=== PATIENT | female | born 1965 | race Caucasian/White ===

== ENCOUNTER 2017-09-25 14:29 | Observation (INO) | payer OTHER ==
[~2017-09-25] VITALS: Ht 160 cm; Wt 66.5 kg
[2017-09-25] MEDS ORDERED: FOLI1TAB8 PO (18:23)
[2017-09-25] MEDS ORDERED: LEFL10TA PO (18:23)
[2017-09-25] MEDS ORDERED: METH2.5T PO (18:23)
[2017-09-25] MEDS ORDERED: HYDR200T5 PO (18:23)
[2017-09-25] MEDS ORDERED: PRED-301 PO (18:23)
--- NOTE | 2017-09-25 18:43 | EMERGENCY ROOM VISIT NOTE ---
History First contact with patient: 18:31 (Malachi Coffman M.D.) First contact with patient: 17:52 (Matthieu Johnson M.D.) Chief Complaint: CARDIAC ASSESSMENT Stated Complaint: RAPID HEARTBEAT, SICK IN STOMACH, TINGLING Nursing Triage Summary: Pt referred by acute care, no testing done. pt c/o left sided chest pain into shoulder blade. tingling in arms and back. denies SOB. (Malachi Coffman M.D.) History of Present Illness 52F with a PMHx of RA on methotrexate and Prednisone (managed by Dr. Hughes?) presents to the Emergency Room with complaints of chest tingling and pressure x 6 hours. Pt was playing candy [employer] on her phone when the tingling started. The tingling has never gone away, or waned. The tingling and pressure is not made worse by movement or exertion. While in the triage area the patient reports that she felt that her heart was racing in 4 separate episodes, this has not occurred before. Denies fevers, denies any chest pain, denies SOB, denies fevers, denies night sweats, no diarrhea, no dysuria, never had kidney stones, + cough. Pt denies any skin changes recently, she reports she did have chicken pox when she was younger. No family history of thyroid issues. SHx: Unemployed, daughter smokes in the home, pt quit smoking 13 years ago. (Malachi Coffman M.D.) Review of Systems See HPI for pertinent positives and negatives. A total of ten systems were reviewed and were otherwise negative. (Malachi Coffman M.D.) Past Medical/Surgical History Medical Problems: (1) Chest tightness (Matthieu Johnson M.D.) Family History No significant family history (Matthieu Johnson M.D.) Social History Smoking Status: Former Smoker (Malachi Coffman M.D.) Current/Historical Medications Scheduled Folic Acid (Folvite), 1 MG PO DAILY Hydroxychloroquine Sulfate (Plaquenil), 200 MG PO HS Leflunomide (Arava), 10 MG PO DAILY Methotrexate (Methotrexate), 20 MG PO WK Prednisone (Prednisone), 5 MG PO DAILY Physical Exam Vital Signs Date Time Temp Pulse Resp B/P (MAP) Pulse Ox O2 Delivery O2 Flow Rate FiO2 09/25/17 20:30 100 152/70 96 Room Air 09/25/17 18:05 84 09/25/17 17:54 100 16 151/68 100 Room Air 09/25/17 14:42 99 Room Air 09/25/17 14:39 36.6 102 18 122/78 99 Room Air (Matthieu Johnson M.D.) Physical Exam Gen: No acute distress. HEENT: Head - normocephalic and atraumatic. Pupils are equal, round, and reactive to light. Extraocular eye muscles are intact and sclera are anicteric. Ears - bilaterally patent canals with noninjected tympanic membranes and no evidence of hemotympanum. Nose - moist nasal mucosa without discharge. Mouth - moist buccal mucosa. Oropharynx is nonerythematous and there is no tonsillar exudate or edema noted. Neck: Supple; no JVD, nuchal rigidity, cervical lymphadenopathy, or auscultated bruits. Heart: Regular rate and rhythm. There is a normal S1 and S2 with no murmurs, clicks, or gallops appreciated. Lungs: Clear to auscultation bilaterally with no wheezes, rales, or rhonchi. Abdomen: Soft, completely nontender, nondistended, with good bowel sounds. There are no palpable pulsatile masses or hepatosplenomegaly. There is no guarding, rigidity, or rebound noted. Extremities: No evidence of cyanosis, clubbing, or edema. There are easily palpable peripheral pulses. Back: Pt's scapular and surrounding musculature on the left side is tender to palpation, she has moderate tenderness on passive range of motion of the left shoulder, none of the MSK movements of the upper left arm reproduce or alleviate her tingling. SKIN: Skin over the anterior upper chest arm, left arm and back are within normal limits for age. No signs of rash or excoriation. Neuro:The patient is awake and alert, oriented to day, time, and place. Muscle strength is 5/5 in all 4 extremities. The patient has equal junior assistant manager strength and equal pedal push and pull. There are no cerebellar signs. (Malachi Coffman M.D.) Medical Decision & Procedures ER Provider Diagnostic Interpretation: SINGLE VIEW CHEST CLINICAL HISTORY: Atypical chest pain. FINDINGS: An AP, portable, upright chest radiograph is obtained. No prior studies are available for comparison at the time of dictation. The examination is mildly degraded by portable technique and patient rotation. The cardiomediastinal silhouette is unremarkable. The lungs and pleural spaces are clear. No pneumothorax is seen. The bony thorax is grossly intact. Productive degenerative change is seen at the acromioclavicular joints. IMPRESSION: No active disease in the chest. (Malachi Coffman M.D.) Laboratory Results 09/25/17 19:14 09/25/17 21:26 09/25/17 19:14 Test 09/25/17 19:14 09/25/17 20:59 09/25/17 21:26 Red Blood Count 2.69 M/uL (4.2-5.4) Mean Corpuscular Volume 85.5 fL (80-100) Mean Corpuscular Hemoglobin 27.5 pg (25-34) Mean Corpuscular Hemoglobin Concent 32.2 g/dl (32-36) RDW Standard Deviation 63.7 fL (36.4-46.3) RDW Coefficient of Variation 20.7 % (11.5-14.5) Mean Platelet Volume 8.7 fL (7.4-10.4) Anion Gap 8.0 mmol/L (3-11) Est Creatinine Clear Calc Drug Dose 100.5 ml/min Estimated GFR () 121.5 Estimated GFR (Non- 104.8 BUN/Creatinine Ratio 15.4 (10-20) Lactic Acid Level 0.7 mmol/L (0.4-2.0) Calcium Level 8.6 mg/dl (8.5-10.1) Total Bilirubin 0.2 mg/dl (0.2-1) Aspartate Amino Transf (AST/SGOT) 20 U/L (15-37) Alanine Aminotransferase (ALT/SGPT) 24 U/L (12-78) Alkaline Phosphatase 44 U/L (45-117) Total Protein 6.9 gm/dl (6.4-8.2) Albumin 3.4 gm/dl (3.4-5.0) Globulin 3.5 gm/dl (2.5-4.0) Albumin/Globulin Ratio 1.0 (0.9-2) Lipase 152 U/L (73-393) Thyroid Stimulating Hormone (TSH) 1.230 uIu/ml (0.300-4.500) Free Thyroxine 1.00 ng/dl (0.80-1.60) Bedside Troponin I < 0.030 ng/ml (0-0.045) Activated Partial Thromboplast Time 25.3 SECONDS (21.0-31.0) Partial Thromboplastin Ratio 1.0 D-Dimer 300 ug/L FEU (0-500) Magnesium Level 2.1 mg/dl (1.8-2.4) (Matthieu Johnson M.D.) Medications Administered Medications (Trade) Dose Ordered Sig/Tatyana Route Start Time Stop Time Status Last Admin Dose Admin Ondansetron HCl (Zofran Odt) 4 mg NOW STAT PO 09/25/17 20:17 09/25/17 20:23 DC 09/25/17 20:34 4 MG (Matthieu Johnson M.D.) ECG Rhythm: sinus tachycardia Findings: no ectopy, other (normal axis, no ST changes. ) (Malachi Coffman M.D.) Indication: chest pain Rate (beats per minute): 104 Rhythm: sinus tachycardia Findings: other (normal intervals, normal axis, no STS changes or TWI as interpreted by me) Comparison ECG Date: no prior available (Matthieu Johnson M.D.) Medical Decision The patient's care and disposition was discussed with Dr. Johnson, Attending ED Physician. This is a 52F with Chest Tingling and Pressure. Differential diagnosis includes but is not limited to acute coronary syndrome, myocardial infarction, pericarditis, pulmonary embolus, aortic dissection, pneumonia, pneumothorax, musculoskeletal, shingles, anemia, esophageal, atrial fibrillation, thyrotoxicosis, herpes zoster and anxiety. Triage Nursing notes were reviewed. ED Course included an extensive history and physical exam, labs, Xray and EKG. CBC showed a hemoglobin of 7.4. EKG showed sinus tachycardia. CMP, Lipase, TSH and Troponin were WNL. 6:30pm - Pt was seen and examined at bedside and initial orders were placed. 7:30pm - Anemia results were discussed with patient at which point she added further history regarding having upper and lower endoscopies for anemia in April 2017 and being chronically anemic. 8:00pm - [facility] records were obtained and the case was discussed with Dr. Johnson. Patient has had a 3 point blood loss since last CBC in August 2017. 8:15pm - Findings were discussed with patient, she preferred to have a BM instead of a rectal exam. 8:20pm - Diet order was placed with Anibal, patient wants to take two of her home medications. 8:30pm - Pt could not produce a BM, digital rectal exam was performed and was negative. 8:40pm - Pt complained of continued tingling but denied any palpitations. She will undergo a walk test with the nurse. 8:50pm - Pt continues to have chest tingling and pressure. It was recommended that the patient be brought in for evaluation of her symptomatic anemia. Patient and daughter we present at bedside and verbalized understanding. 9pm - Spoke with Dr. Palomares about admission regarding symptomatic anemia. The pt was informed about the findings as listed above. All questions were answered. (Malachi Coffman M.D.) Medication Reconcilliation Current Medication List: was personally reviewed by me (Matthieu Johnson M.D.) Blood Pressure Screening Patient's blood pressure: Elevated blood pressure Blood pressure disposition: Referred to PCP (Matthieu Johnson M.D.) Impression Primary Impression: Anemia Additional Impression: Chest tightness Departure Information Dispostion Admitted as an inpatient Condition FAIR Referrals No Doctor, Assigned (PCP) Patient Instructions My [facility] Resident Involvement: Resident Care Provided Care Provided: Adult ED (Malachi Coffman M.D.) Problem Qualifiers Primary Impression: Anemia Anemia type: unspecified type Qualified Codes: D64.9 - Anemia, unspecified
--- NOTE | 2017-09-25 18:50 | DIAGNOSTIC IMAGING REPORT ---
SINGLE VIEW CHEST CLINICAL HISTORY: Atypical chest pain. FINDINGS: An AP, portable, upright chest radiograph is obtained. No prior studies are available for comparison at the time of dictation. The examination is mildly degraded by portable technique and patient rotation. The cardiomediastinal silhouette is unremarkable. The lungs and pleural spaces are clear. No pneumothorax is seen. The bony thorax is grossly intact. Productive degenerative change is seen at the acromioclavicular joints. IMPRESSION: No active disease in the chest. Electronically signed by: Nayan Enrique M.D. 09/25/2017 6:49 PM Dictated Date/Time: 09/25/2017 6:48 PM
[2017-09-25 19:26] LABS: HEMOGLOBIN 7.4 g/dL (12.0-16.0); MEAN CELL VOLUME 85.5 fL (80-100); MEAN CORPUSCULAR HEMOGLOBIN 27.5 pg (25-34); MEAN CORPUSCULAR HGB CONC 32.2 g/dl (32-36); MEAN PLATELET VOLUME 8.7 fL (7.4-10.4); PLATELET COUNT 416 K/uL (130-400); RED CELL DISTRIBUTION WIDTH CV 20.7 % (11.5-14.5); RED CELL DISTRIBUTION WIDTH SD 63.7 fL (36.4-46.3)
[2017-09-25 19:47] LABS: ALBUMIN 3.4 gm/dl (3.4-5.0); CALCIUM 8.6 mg/dl (8.5-10.1); CREATININE 0.6 mg/dl (0.60-1.20); POTASSIUM 3.7 mmol/L (3.5-5.1)
[2017-09-25 19:58] LABS: TOTAL PROTEIN 6.9 gm/dl (6.4-8.2)
[2017-09-25] MEDS ORDERED: ONDANSETRON 4MG OD TAB PO STA (20:17)
--- NOTE | 2017-09-25 20:19 | EMERGENCY ROOM VISIT NOTE ---
ED Visit Note First contact with patient: 17:52 The patient was seen and examined with the resident, Dr. Coffman . I agree with the history, physical and findings. Please see the note for disposition and details.
[2017-09-25 21:39] LABS: HEMATOCRIT 23.1 % (37-47); HEMOGLOBIN 7.4 g/dL (12.0-16.0)
[2017-09-25 21:42] LABS: PTT PATIENT 25.3 SECONDS (21.0-31.0)
[2017-09-25] MEDS ORDERED: ALUMINUM/MAGNESIUM SUSP 30 ML UDC ONE (23:11)
[2017-09-25] MEDS ORDERED: LIDOCAINE HCL 2% VISC SOLN 20 ML UDC ONE (23:11)
[2017-09-25] MEDS ORDERED: GI COCKTAIL PO ONE (23:15)
[2017-09-25] MEDS ORDERED: MoRPHine SULFATE 4 MG/ML 1 ML CARP\\VIAL IV PRN (23:30)
[2017-09-25] MEDS ORDERED: IV FLUIDS COMPLETED PRN (23:30)
[2017-09-25] MEDS ORDERED: ACETAMINOPHEN 325 MG TAB PO PRN (23:30)
[2017-09-25] MEDS ORDERED: NITROGLYCERIN 0.4 MG SL PER TAB CHARGE SL PRN (23:30)
[2017-09-25] MEDS ORDERED: TRAMADOL HCL 50 MG TAB PO PRN (23:30)
[2017-09-25] MEDS ORDERED: PROCHLORPERAZINE INJ 5 MG in SYRINGE 4 ML IV PRN (23:30)
[2017-09-25] MEDS ORDERED: LORAZEPAM 2 MG/ML 1 ML VIAL IV PRN (23:30)
[2017-09-25] MEDS ORDERED: PANTOprazole SOD 40 MG TAB PO STA (23:51)
[2017-09-26] MEDS ORDERED: NSS + 20MEQ KCL 1000ML 1,000 ML IV SCH (03:00)
[2017-09-26 04:23] LABS: BASO % 0.6 %; BASO ABS # 0.07 K/uL (0-0.2); EOS % 0.9 %; EOS ABS # 0.11 K/uL (0-0.5); HEMATOCRIT 23.1 % (37-47); HEMOGLOBIN 7.3 g/dL (12.0-16.0); IG# 0.02 K/uL (0.00-0.02); LYMPH ABS # 2.38 K/uL (1.2-3.4); MEAN CELL VOLUME 85.2 fL (80-100); MEAN CORPUSCULAR HEMOGLOBIN 26.9 pg (25-34); MEAN CORPUSCULAR HGB CONC 31.6 g/dl (32-36); MEAN PLATELET VOLUME 8.7 fL (7.4-10.4); MONO ABS # 0.36 K/uL (0.11-0.59); NEUT % 75.3 %; NEUT ABS # 8.96 K/uL (1.4-6.5); PLATELET COUNT 396 K/uL (130-400); RED CELL DISTRIBUTION WIDTH CV 20.7 % (11.5-14.5); RED CELL DISTRIBUTION WIDTH SD 64.4 fL (36.4-46.3); RETIC COUNT % 2.3 % (0.5-2.0)
[2017-09-26 04:45] LABS: TRANSFERRIN 237 mg/dl (200-360)
[2017-09-26 05:11] VITALS: BP 119/54; PULSE 72; TEMP 36.6; Ht 160 cm; Wt 66.5 kg
[2017-09-26 05:15] VITALS: BP 93/60; PULSE 68; TEMP 36.4; O2SAT 99
--- NOTE | 2017-09-26 05:26 | HISTORY & PHYSICAL EXAMINATION ---
DATE OF ADMISSION: 09/25/2017 PRIMARY CARE DOCTOR: Dr. Womack (Patient would like to follow-up with Miss Balbina Kimball PA-C at [facility] upon discharge from the hospital. ) Chief complaint : Chest tightness HISTORY OF PRESENT ILLNESS: Medical history significant for rheumatoid arthritis on chronic immunosuppression, depression, chronic anemia baseline hemoglobin 11, colonic polyposis, hemorrhoids, diverticulosis, past tobacco abuse. T Patient was watching television yesterday, playing with her phone when she noted substernal tightness going to her left shoulder. No shortness of breath, nonpleuritic. Some worsening with motion Burning like. Relief with GI cocktail given in the ER. Denies abdominal pain/black/bloody stools. stool FOBT at the ER was negative. MEDICAL HISTORY: As above. Has not been feeling well on RA meds particularly methotrexate for about a year. Patient contemplating on talking to her computer technology instructor next week about possibly stopping medication. Worsening anemia last year, hemoglobin of 7.4 at the lowest. Iron deficiency anemia on outpatient workup. EGD Normal. Colonoscopy from 2017 showed polyps, diverticulosis and internal hemorrhoids. HOME MEDICATIONS: Methotrexate, Arava, prednisone, ferrous sulfate, hydroxychloroquine, ibuprofen. ALLERGIES: No known drug allergies. FAMILY HISTORY: Rheumatoid arthritis, diabetes. PERSONAL AND SOCIAL HISTORY: Past tobacco abuse. No chronic intake of alcoholic beverages. Homemaker. REVIEW OF SYSTEMS: As per HPI. All 10 systems reviewed. All Other ROS negative. PHYSICAL EXAMINATION: VITAL SIGNS: Blood pressure 127/78, pulse rate 100, RR 18, temperature 36.6, sats 98 on room. GENERAL: Noted to comfortable, pleasant, no respiratory distress. SKIN: Pallor . Warm. HEENT: Pale palpebral conjunctivae. No ptosis. Dry mucosa. NECK: Supple. No tenderness. CHEST: Clear to auscultation. No tenderness. HEART: Regular rate and rhythm, no murmur. ABDOMEN: Soft, nontender. EXTREMITIES: No edema. Left posterior shoulder tenderness. no gross deformities. NEUROLOGIC: Coherent. No gross focality. LABORATORY DATA: Hemoglobin was noted to be 7.4, hematocrit 20, white cell count 12.7, platelets noted to be 416. Sodium 139, potassium 3.7, chloride 106, CO2 of 25, BUN 9, creatinine 0.6, glucose noted to be 89. D-dimer was normal. Chest x-ray showed no active disease. EKG as per my interpretation, rate 105, sinus tachycardia, no ischemia. ASSESSMENT: 1. Atypical chest pain likely secondary to GERD. Burning quality, relief with GI cocktail given at the ER. Patient predisposed by multiple home meds for rheumatoid arthritis (NSAIDS, Prednisone, Methotrexate.) ro ACS w/ left posterior shoulder radiation (left posterior shoulder with reproducible tenderness) 2. Acute on chronic anemia Patient asymptomatic - she denies chest pain, shortness of breath symptoms. Iron deficiency anemia on partial outpatient anemia workup last year. Negative FOBT at the ER. Patient completed GI workup last year. ? Hematologic toxicity from Methotrexate, Plaquenil 3. Past tobacco abuse. PLAN: Observation PCU. Initiate PPI Stress test in a.m. if morning troponin normal Hold Methotrexate for now until further discussion with [facility] Rheumatology (Dr. Burns) Complete anemia workup. May need Hematology opinion. Iron supplementation. DVT prophylaxis. DVT prophylaxis, Lovenox subQ. Full code. ADDENDUM : Case discussed with Dr. Burns. Okay to hold home MTRX until patient sees him in his office next week. MTDD
[2017-09-26 07:31] VITALS: BP 96/59; PULSE 71; TEMP 36.9; O2SAT 98
[2017-09-26 08:00] VITALS: O2SAT 98
[2017-09-26] MEDS: FERROUS SULFATE 325 MG TAB PO SCH ×2 (08:01→12:14)
[2017-09-26] MEDS ORDERED: LEFLUNOMIDE 10 MG TAB PO SCH (09:00)
[2017-09-26] MEDS ORDERED: ENOXAPARIN 40 MG/0.4 ML SYR SC SCH (09:00)
[2017-09-26 12:00] VITALS: O2SAT 98
[2017-09-26 12:32] LABS: HEMATOCRIT 25.2 % (37-47); HEMOGLOBIN 7.9 g/dL (12.0-16.0)
--- NOTE | 2017-09-26 13:36 | EXERCISE STRESS ECHO ---
*NOTICE TO RECEIVING REPUBLICAN AGENCY This information is strictly Confidential and protected under [place] law. [place] law prohibits you from making any further disclosure of this information unless further disclosure is expressly permitted by the written consent of the person to whom it pertains or is authorized by law. A general authorization for the release of medical or other information is not sufficient for this purpose. Hospital accepts no responsibility if the information is made available to any other person, INCLUDING THE PATIENT. Interpretation Summary * Name: SUKUMAR AKHTAR Study Date: 09/26/2017 10:08 AM BP: 117/65 mmHg * Patient Location: [facility]\S\N286\S\2 HR: 71 * : 1965 (M/d/yyyy) Gender: Female Height: 63 in * Age: 52 yrs Ethnicity: CA Weight: 146 lb * Ordering Physician: Luis Fernando Jacques * Referring Physician: Self, Referred * Performed By: Virgen Morales RDCS * * Reason For Study: CHEST PAIN * BSA: 1.7 m2 * -- Conclusions -- * Nonischemic exercise stress echocardiogram. * No arrhythmias. * Normal HR and BP response to exercise. * Below average exercise tolerance. * Chest pain was not reproduced with exercise. * At rest, normal LV chamber size and wall thickness. * Normal LV systolic function, EF 60-65%. * No segmental left ventricular wall motion abnormalities are noted. * Normal diastolic function. * No significant valvular pathology. Procedure Details * ECHOEX, CPT #[id number] Left Ventricle * The left ventricle is normal in size. * There is normal left ventricular wall thickness. * Left ventricular systolic function is normal. * No segmental left ventricular wall motion abnormalities are noted. * Ejection Fraction = 60-65%. * Resting wall motion: Normal. Stress wall motion: Appropriate increase in Left ventricular systolic function and decrease in cavity size. No stress induced segmental wall motion abnormalities. Right Ventricle * The right ventricular cavity size is normal (basal dimension <4.2 cm in right ventricular apical 4-chamber view). * The right ventricular systolic function is normal as assessed by tricuspid annular plane systolic excursion (TAPSE) (normal >1.5 cm). Atria * The left atrial size is normal. * Right atrial size is normal. * No ASD detected; PFO is not assessed. Mitral Valve * The mitral valve is normal in structure and function. Tricuspid Valve * The tricuspid valve is normal in structure and function. Aortic Valve * The aortic valve is normal in structure and function. Pulmonic Valve * The pulmonary valve is not well seen, but the Doppler examination is normal without significant regurgitation or stenosis. Great Vessels * The aortic root is normal size. Pericardium * There is no pericardial effusion. Stress Parameters * Normal baseline electrocardiogram. * There was a maximum 1.5mm ST segment depression in the inferior lead(s). * No arrhythmia were noted with stress. * The stress portion of this study was personally supervised by the undersigned interpreting physician. * Rest heart rate was '71' BPM. * Rest blood pressure was '117/65' * Maximum heart rate achieved was 164 bpm. * Maximum heart rate was 97 % of maximum age-predicted heart rate. * Maximum blood pressure was '164/58' * Total exercise time was '6:01' * Maximum exercise MET level achieved was '7' METS * Maximum treadmill speed was '2.5' miles per hour. * Maximum treadmill elevation was '12.2'% grade. * Exercise was terminated due to 'ACHIEVING TARGET HR' Left Ventricular Diastolic Function * Pulse wave TDI of the anterior and posterior mitral annulas demonstrates normal LV relaxation MMode 2D Measurements and Calculations IVSd 0.51 cm IVSs 1.2 cm LVIDd 4.4 cm LVIDs 2.9 cm LVPWd 1.0 cm LVPWs 1.5 cm IVS/LVPW 0.49 FS 33.2 % EDV(Teich) 85.4 ml ESV(Teich) 32.4 ml EF(Teich) 62.1 % EDV(cubed) 82.4 ml ESV(cubed) 24.6 ml EF(cubed) 70.2 % % IVS thick 127.4 % % LVPW thick 44.4 % LV mass(C)d 102.9 grams LV mass(C)dI 60.8 grams/m\S\2 LV mass(C)s 123.6 grams LV mass(C)sI 73.1 grams/m\S\2 SV(Teich) 53.0 ml SI(Teich) 31.3 ml/m\S\2 SV(cubed) 57.8 ml SI(cubed) 34.2 ml/m\S\2 LA dimension 3.0 cm LVAd ap4 27.1 cm\S\2 LVLd ap4 7.9 cm EDV(MOD-sp4) 77.3 ml EDV(sp4-el) 79.2 ml LVAs ap4 15.8 cm\S\2 LVLs ap4 6.9 cm ESV(MOD-sp4) 33.2 ml ESV(sp4-el) 30.9 ml EF(MOD-sp4) 57.1 % EF(sp4-el) 60.9 % LVAd ap2 24.7 cm\S\2 LVLd ap2 8.0 cm EDV(MOD-sp2) 65.7 ml EDV(sp2-el) 64.9 ml LVAs ap2 13.8 cm\S\2 LVLs ap2 6.3 cm ESV(MOD-sp2) 26.1 ml ESV(sp2-el) 25.6 ml EF(MOD-sp2) 60.3 % EF(sp2-el) 60.5 % LVLd %diff 1.5 % EDV(MOD-bp) 71.7 ml LVLs %diff -8.54 % ESV(MOD-bp) 29.4 ml EF(MOD-bp) 59.0 % SV(MOD-sp4) 44.1 ml SI(MOD-sp4) 26.1 ml/m\S\2 SV(MOD-sp2) 39.6 ml SI(MOD-sp2) 23.4 ml/m\S\2 SV(MOD-bp) 42.3 ml SI(MOD-bp) 25.0 ml/m\S\2 SV(sp4-el) 48.2 ml SI(sp4-el) 28.5 ml/m\S\2 SV(sp2-el) 39.3 ml SI(sp2-el) 23.2 ml/m\S\2 Doppler Measurements and Calculations MV E max jack 94.1 cm/sec MV A max jack 82.5 cm/sec MV E/A 1.1 MV dec time 0.26 sec Ao V2 max 170.1 cm/sec Ao max PG 11.6 mmHg Ao max PG (full) 5.1 mmHg LV V1 max PG 6.5 mmHg LV V1 max 127.3 cm/sec
--- NOTE | 2017-09-26 15:40 | Progress Note ---
Subjective Date of Service: Sep 26, 2017. Subjective Pt evaluation today including: conversation w/ patient, physical exam, lab review, review of studies, review of inpatient medication list Problem List Medical Problems: (1) Anemia Status: Acute Review of Systems Constitutional: No fever, No chills, No weakness Respiratory: No cough, No sputum, No shortness of breath Cardiac: No chest pain, No edema, No palpitations Abdomen: + problem reported (reflux), No pain, No nausea, No vomiting, No diarrhea, No GI bleeding Female : No hematuria Psychiatric: No depression symptoms, No anxiety, No insomnia Heme: No abnormal bleeding/bruising Medications Current Inpatient Medications Medications (Trade) Dose Ordered Sig/Tatyana Route Start Time Stop Time Status Last Admin Dose Admin Enoxaparin Sodium (Lovenox Inj) 40 mg Q24H SC 09/26/17 09:00 10/26/17 08:59 09/26/17 08:04 40 MG Acetaminophen (Tylenol Tab) 650 mg Q4H PRN PO 09/25/17 23:30 10/25/17 23:29 Nitroglycerin (Nitrostat Tab) 0.4 mg UD PRN SL 09/25/17 23:30 10/25/17 23:29 Tramadol HCl (Ultram Tab) 25 mg Q6H PRN PO 09/25/17 23:30 10/25/17 23:29 Prochlorperazine Edisylate 5 mg/ Syringe 5 ml @ 5 mls/min Q6H PRN IV 09/25/17 23:30 10/25/17 23:29 Morphine Sulfate (MoRPHine SULFATE INJ) 4 mg Q3H PRN IV 09/25/17 23:30 10/09/17 23:29 Lorazepam (Ativan Inj) 0.5 mg Q4H PRN IV 09/25/17 23:30 10/25/17 23:29 Folic Acid (Folvite Tab) 1 mg DAILY PO 09/26/17 09:00 10/26/17 08:59 09/26/17 08:02 1 MG Hydroxychloroquine Sulfate (Plaquenil Tab) 200 mg HS PO 09/26/17 21:00 10/26/17 20:59 Prednisone (PredniSONE TAB) 5 mg DAILY PO 09/26/17 09:00 10/26/17 08:59 09/26/17 09:21 5 MG Leflunomide (Arava) 10 mg DAILY PO 09/26/17 09:00 10/26/17 08:59 09/26/17 08:02 10 MG Potassium Chloride/Sodium Chloride 1,000 ml @ 40 mls/hr Q24H IV 09/26/17 03:00 10/26/17 02:59 09/26/17 03:08 40 MLS/HR Miscellaneous (Iv Fluids Completed) 1 ea PRN PRN N/A 09/25/17 23:30 09/25/18 23:29 Pantoprazole Sodium (Protonix Tab) 40 mg HS PO 09/26/17 21:00 09/28/17 21:01 Ferrous Sulfate (Feosol Tab) 325 mg TIDM PO 09/26/17 08:00 10/26/17 07:59 09/26/17 12:14 325 MG Objective Vital Signs Date Time Temp Pulse Resp B/P (MAP) Pulse Ox O2 Delivery O2 Flow Rate FiO2 09/26/17 12:00 98 Room Air 09/26/17 08:00 98 Room Air 09/26/17 07:31 36.9 71 16 96/59 (71) 98 Room Air 09/26/17 05:15 36.4 68 20 93/60 (71) 99 Room Air 09/26/17 05:11 36.6 72 16 119/54 Room Air 09/25/17 23:04 80 16 156/78 98 Room Air 09/25/17 20:30 100 152/70 96 Room Air 09/25/17 18:05 84 09/25/17 17:54 100 16 151/68 100 Room Air Physical Exam General Appearance: no apparent distress Respiratory/Chest: lungs clear, normal breath sounds, no respiratory distress, no accessory muscle use Cardiovascular: regular rate, rhythm, no edema, no murmur Abdomen: non tender, soft Extremities: normal inspection, no pedal edema Neurologic/Psychiatric: no motor/sensory deficits, alert, normal mood/affect Laboratory Results Last 24 Hours Test 09/25/17 19:14 09/25/17 19:22 09/25/17 20:59 09/25/17 21:26 White Blood Count 12.70 K/uL Red Blood Count 2.69 M/uL Hemoglobin 7.4 g/dL 7.4 g/dL Hematocrit 23.0 % 23.1 % Mean Corpuscular Volume 85.5 fL Mean Corpuscular Hemoglobin 27.5 pg Mean Corpuscular Hemoglobin Concent 32.2 g/dl RDW Standard Deviation 63.7 fL RDW Coefficient of Variation 20.7 % Platelet Count 416 K/uL Mean Platelet Volume 8.7 fL Sodium Level 139 mmol/L Potassium Level 3.7 mmol/L Chloride Level 106 mmol/L Carbon Dioxide Level 25 mmol/L Anion Gap 8.0 mmol/L Blood Urea Nitrogen 9 mg/dl Creatinine 0.60 mg/dl Est Creatinine Clear Calc Drug Dose 100.5 ml/min Estimated GFR () 121.5 Estimated GFR (Non- 104.8 BUN/Creatinine Ratio 15.4 Random Glucose 89 mg/dl Lactic Acid Level 0.7 mmol/L Calcium Level 8.6 mg/dl Total Bilirubin 0.2 mg/dl Aspartate Amino Transf (AST/SGOT) 20 U/L Alanine Aminotransferase (ALT/SGPT) 24 U/L Alkaline Phosphatase 44 U/L Total Protein 6.9 gm/dl Albumin 3.4 gm/dl Globulin 3.5 gm/dl Albumin/Globulin Ratio 1.0 Lipase 152 U/L Thyroid Stimulating Hormone (TSH) 1.230 uIu/ml Free Thyroxine 1.00 ng/dl Bedside Troponin I < 0.030 ng/ml < 0.030 ng/ml Prothrombin Time 10.3 SECONDS Prothromb Time International Ratio 1.0 Activated Partial Thromboplast Time 25.3 SECONDS Partial Thromboplastin Ratio 1.0 D-Dimer 300 ug/L FEU Magnesium Level 2.1 mg/dl Test 09/26/17 04:10 09/26/17 10:48 09/26/17 12:13 White Blood Count 11.90 K/uL Red Blood Count 2.71 M/uL Hemoglobin 7.3 g/dL 7.9 g/dL Hematocrit 23.1 % 25.2 % Mean Corpuscular Volume 85.2 fL Mean Corpuscular Hemoglobin 26.9 pg Mean Corpuscular Hemoglobin Concent 31.6 g/dl Platelet Count 396 K/uL Mean Platelet Volume 8.7 fL Neutrophils (%) (Auto) 75.3 % Lymphocytes (%) (Auto) 20.0 % Monocytes (%) (Auto) 3.0 % Eosinophils (%) (Auto) 0.9 % Basophils (%) (Auto) 0.6 % Neutrophils # (Auto) 8.96 K/uL Lymphocytes # (Auto) 2.38 K/uL Monocytes # (Auto) 0.36 K/uL Eosinophils # (Auto) 0.11 K/uL Basophils # (Auto) 0.07 K/uL RDW Standard Deviation 64.4 fL RDW Coefficient of Variation 20.7 % Immature Granulocyte % (Auto) 0.2 % Immature Granulocyte # (Auto) 0.02 K/uL Anisocytosis PRESENT Peripheral Blood Smear Path Consult Absolute Reticulocyte Count 0.06 10^6/uL Percent Reticulocyte Count 2.3 % Iron Level 11 mcg/dl Total Iron Binding Capacity 328 mcg/dl Transferrin 237 mg/dl Transferrin % Saturation 3 % Ferritin 10.3 ng/ml Troponin I < 0.015 ng/ml Vitamin B12 Level 480 pg/mL Folate 14.64 ng/mL Assessment and Plan This is a 52 year old female with a PMH of rheumatoid arthritis, iron deficiency anemia - presents with chest pain Chest Pain stress test negative likely secondary to GERD; she feels heart burn symptoms improved chest pain with GI cocktail currently feeling fine with no symptoms will d/c with script for Prilosec Anemia likely secondary to iron deficiency GI work-up negative in the past FOBT negative will d/c on ferrous sulfate; outpatient w/up Hgb up to 7.9 Rheumatoid Arthritis as per rheumatology - we can hold Methotrexate until outpatient f/u DVT ppx Lovenox FULL CODE
[2017-09-26] MEDS ORDERED: FRRS300 PO (15:44)
[2017-09-26] MEDS ORDERED: OMEP40CA41 PO (15:44)
--- NOTE | 2017-09-26 15:51 | Discharge Instructions ---
Discharge Instructions Date of Service Sep 26, 2017. Admission Reason for Admission: Chest Tightness Discharge Discharge Diagnosis / Problem: Chest Tightness, likely GERD; anemia Discharge Goals Goal(s): Decrease discomfort, Improve function, Diagnostic testing, Therapeutic intervention Activity Recommendations Activity Limitations: resume your previous activity . Instructions / Follow-Up Instructions / Follow-Up Please follow-up with Dr. Womack on October 01 at 12:45PM * Your stress test was negative * You will be started on Prilosec for reflux-symptoms * You can stop taking methotrexate until you see rheumatology as an outpatient on September 29 * Your dose of iron is increased to three times daily - please follow-up with primary care regarding your anemia Current Hospital Diet Patient's current hospital diet: AHA Diet (Heart Healthy) Discharge Diet Recommended Diet: AHA Diet (Heart Healthy) Pending Studies Studies pending at discharge: no Medical Emergencies . Who to Call and When: Medical Emergencies: If at any time you feel your situation is an emergency, please call 911 immediately. . Non-Emergent Contact Non-Emergency issues call your: Primary Care Provider . . "Provider Documentation" section prepared by Nasima Delgado. . VTE Core Measure Inpt VTE Proph given/why not?: Enoxaparin (Lovenox)SQ
--- NOTE | 2017-09-26 15:53 | Discharge Summary ---
Discharge Summary Date of Service Sep 26, 2017. Discharge Summary Admission Date: Sep 25, 2017 at 22:53 Discharge Date: Sep 26, 2017 Discharge Disposition: Home Principal Diagnosis: Chest Pain - likely GERD Anemia - likely iron deficiency RA Medication Reconciliation New Medications: Omeprazole (Prilosec) 40 Mg Cap 1 CAP PO DAILY for 30 Days, #30 CAP 3 Refills Ferrous Sulfate (Ferrous Sulfate) 325 Mg Tab 325 MG PO TIDM for 30 Days, #90 TAB Continued Medications: Folic Acid (Folvite) 1 Mg Tab 1 MG PO DAILY, TAB Hydroxychloroquine Sulfate (Plaquenil) 200 Mg Tab 200 MG PO HS, TAB Leflunomide (Arava) 10 Mg Tab 10 MG PO DAILY Prednisone (Prednisone) 5 Mg Tab 5 MG PO DAILY, TAB Discontinued Medications: Methotrexate (Methotrexate) 2.5 Mg Tab 20 MG PO WK, TAB TAKE 8 TABLETS (20 MG) EVERY FRIDAY Admission Information HPI (per Admitting provider): DATE OF ADMISSION: 09/25/2017 PRIMARY CARE DOCTOR: Dr. Womack (Patient would like to follow-up with Miss Balbina Kimball PA-C at [facility] upon discharge from the hospital. ) Chief complaint : Chest tightness HISTORY OF PRESENT ILLNESS: Medical history significant for rheumatoid arthritis on chronic immunosuppression, depression, chronic anemia baseline hemoglobin 11, colonic polyposis, hemorrhoids, diverticulosis, past tobacco abuse. T Patient was watching television yesterday, playing with her phone when she noted substernal tightness going to her left shoulder. No shortness of breath, nonpleuritic. Some worsening with motion Burning like. Relief with GI cocktail given in the ER. Denies abdominal pain/black/bloody stools. stool FOBT at the ER was negative. MEDICAL HISTORY: As above. Has not been feeling well on RA meds particularly methotrexate for about a year. 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 Worsening anemia last year, hemoglobin of 7.4 at the lowest. Iron deficiency anemia on outpatient workup. EGD Normal. Colonoscopy from 2017 showed polyps, diverticulosis and internal hemorrhoids. HOME MEDICATIONS: Methotrexate, Arava, prednisone, ferrous sulfate, hydroxychloroquine, ibuprofen. ALLERGIES: No known drug allergies. FAMILY HISTORY: Rheumatoid arthritis, diabetes. PERSONAL AND SOCIAL HISTORY: Past tobacco abuse. No chronic intake of alcoholic beverages. Homemaker. REVIEW OF SYSTEMS: As per HPI. All 10 systems reviewed. All Other ROS negative. PHYSICAL EXAMINATION: VITAL SIGNS: Blood pressure 127/78, pulse rate 100, RR 18, temperature 36.6, sats 98 on room. GENERAL: Noted to comfortable, pleasant, no respiratory distress. SKIN: Pallor . Warm. HEENT: Pale palpebral conjunctivae. No ptosis. Dry mucosa. NECK: Supple. No tenderness. CHEST: Clear to auscultation. No tenderness. HEART: Regular rate and rhythm, no murmur. ABDOMEN: Soft, nontender. EXTREMITIES: No edema. Left posterior shoulder tenderness. no gross deformities. NEUROLOGIC: Coherent. No gross focality. LABORATORY DATA: Hemoglobin was noted to be 7.4, hematocrit 20, white cell count 12.7, platelets noted to be 416. Sodium 139, potassium 3.7, chloride 106, CO2 of 25, BUN 9, creatinine 0.6, glucose noted to be 89. D-dimer was normal. Chest x-ray showed no active disease. EKG as per my interpretation, rate 105, sinus tachycardia, no ischemia. ASSESSMENT: 1. Atypical chest pain likely secondary to GERD. Burning quality, relief with GI cocktail given at the ER. Patient predisposed by multiple home meds for rheumatoid arthritis (NSAIDS, Prednisone, Methotrexate.) ro ACS w/ left posterior shoulder radiation (left posterior shoulder with reproducible tenderness) 2. Acute on chronic anemia Patient asymptomatic - she denies chest pain, shortness of breath symptoms. Iron deficiency anemia on partial outpatient anemia workup last year. Negative FOBT at the ER. Patient completed GI workup last year. ? Hematologic toxicity from Methotrexate, Plaquenil 3. Past tobacco abuse. PLAN: Observation PCU. Initiate PPI Stress test in a.m. if morning troponin normal Hold Methotrexate for now until further discussion with [facility] [place] [facility] (Dr. Burns) Complete anemia workup. May need Hematology opinion. Iron supplementation. DVT prophylaxis. DVT prophylaxis, Lovenox subQ. Full code. ADDENDUM : Case discussed with Dr. Burns. Okay to hold home MTRX until patient sees him in his office next week. Hospital Course This is a 52 year old female with a PMH of rheumatoid arthritis, iron deficiency anemia - presents with chest pain Chest Pain stress test negative likely secondary to GERD; she feels heart burn symptoms improved chest pain with GI cocktail currently feeling fine with no symptoms will d/c with script for Prilosec Anemia likely secondary to iron deficiency GI work-up negative in the past FOBT negative will d/c on ferrous sulfate; outpatient w/up Hgb up to 7.9 Rheumatoid Arthritis as per rheumatology - we can hold Methotrexate until outpatient f/u DVT ppx Lovenox FULL CODE Total time spent on discharge = 20 minutes This includes examination of the patient, discharge planning, medication reconciliation, and communication with other providers. Discharge Instructions Please follow-up with Dr. Womack on October 01 at 12:45PM * Your stress test was negative * You will be started on Prilosec for reflux-symptoms * You can stop taking methotrexate until you see rheumatology as an outpatient on September 29 * Your dose of iron is increased to three times daily - please follow-up with primary care regarding your anemia
[2017-09-26 15:58] VITALS: BP 96/59; PULSE 71; TEMP 36.9; O2SAT 98
[2017-09-26] MEDS ORDERED: PANTOprazole SOD 40 MG TAB PO SCH (21:00)
[2017-09-26] MEDS ORDERED: HYDROXYCHLOROQUINE SULFATE 200 MG TAB PO SCH (21:00)
== END 2017-09-26 17:51 | disposition home or self-care (01) ==
LOC: C.EDB 14:32 → C.MED 22:53 → ENRESERV 23:34
PROVIDERS: ADMIT Internal Medicine; ATTEND Family Medicine
DX: R00.0 Tachycardia, unspecified (principal); D64.9 Anemia, unspecified; M06.9 Rheumatoid arthritis, unspecified; F32.9 Major depressive disorder, single episode, unspecified; Z87.891 Personal history of nicotine dependence; Z79.899 Other long term (current) drug therapy